=== PATIENT | female | born 1990 | race Hispanic/Latino ===

== ENCOUNTER 2016-10-09 01:25 | Inpatient (IN) | payer OTHER ==
[~2016-10-09] VITALS: Ht 154.9 cm; Wt 97.1 kg
[~2016-10-09 01:25] MED LIST: PREN1TAB47 PO
[2016-10-09] MEDS ORDERED: Lactated Ringer's 1,000 ML IV PRN (01:54)
[2016-10-09] MEDS ORDERED: Methylergonovine 0.2 mg/mL Inj IM PRN ×2 (01:55→14:05)
[2016-10-09] MEDS ORDERED: Oxytocin 10 Unit/mL Inj IM PRN ×2 (01:55→14:05)
[2016-10-09] MEDS ORDERED: Sodium Chloride LOK Flush 10 mL Syringe IVFLUSH PRN (01:55)
[2016-10-09] MEDS ORDERED: Oxytocin 30 Units/500 mL LR 30 UNITS in IV Premix 1 EACH IV PRN ×3 (01:55→14:05)
[2016-10-09] MEDS ORDERED: fentaNYL-PF 50 mCg/mL 2 mL Inj IVPUSH PRN (01:55)
[2016-10-09] MEDS ORDERED: Carboprost 250 mCg/mL Inj IM PRN ×2 (01:55→14:05)
[2016-10-09] MEDS ORDERED: Hemorrhage Kit, Post Partum XX ONE ×2 (01:55→14:05)
[2016-10-09 02:52] LABS: Mean Corpuscular Hemoglobin 27.7 pg (27.0-35.0); Mean Corpuscular Volume 84.8 fL (81-100)
[2016-10-09] MEDS ORDERED: Lactated Ringer's 1,000 ML IV SCH ×2 (06:39→14:05)
--- NOTE | 2016-10-09 08:43 | PCM.HPOB ---
Subjective Date of Service: Oct 09, 2016 Referring Provider: Admitting Physician: Jyoti Garcia MD Primary Care Physician: Lilliam Jiménez MD Attending Physician: Jyoti Garcia MD Chief Complaint SROM at 39+ 5 weeks History of Present History of Present Illness Patient is a very pleasant 26-year-old with an EDC of 10/11/2016. She has had regular care and has an LMP of 01/05/2016. Menarche was at the age of 13 and she has monthly cycles. She had a first trimester ultrasound done at 10 weeks +1 day confirming EDC of 10/11/2016. She has noticed more contractions over the last couple of days and fell asleep last evening but woke at 12 midnight with spontaneous rupture of membranes for clear fluid. Baby has been active and she was having occasional mild contractions every 8-10 minutes on arrival. She has rested overnight but has not yet kicked into a good labor pattern. Pitocin augmentation was started over the last hour or so but contractions are not picking up well. She rates them as mild to moderate. heart rate is in the 130 to 140s with good fbva-hz-yzyk variability and good accelerations. Vaginal exam showed vertex at -3 station, 50% effaced, cervix was mid to posterior position and an IUPC was placed with clear fluid returns. She is currently at Pitocin 2 milliunits per minute and this will be titrated to achieve a good contraction pattern. An is anticipated an estimated weight is 6-7 pounds. Mother's blood pressures have been normal throughout the and her GTT was 138. Weight gain in the has been 12 pounds. Mother is breathing well through contractions at this time and is hoping for natural delivery. She will consider an epidural if needed. I did speak with OB federal mediation commissioner about Pitocin augmentation and anticipated course of labor and delivery. OB History: (2), Para (1), Term (1), (0), Living (1) Past Medical History Obstetrical History: Her first baby was born October 2001 at 41 weeks gestation with 12 hours of labor. She had normal vaginal delivery of a baby boy weighing 6 lbs. 7 oz. His name is Rowan, and he is healthy but does have sensorineural hearing loss on one side with no obvious etiology. Gynecologic History: Patient has not had any history of abnormal Pap smears or STDs. 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 It had been quite bothersome during her last and with breast-feeding. 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 Surgical History: She had accessory breast tissue excised under local anesthetic from the right axillary area during this . Social History: She is and lives with the father of her baby Chung Gonzalez. Hx Tobacco Use: No Hx Alcohol Use: No Hx Substance Use: No Past Family History Living Arrangement: with Family Genetic Screening/Counseling Genetic Screening/Counseling: Negative Baby father-had child w defect: No Review of Systems Constitutional: Y: Dizziness, Fever Eyes: Denies: Blurred Vision, Redness, Vision Changes ENT: Denies: Dental Problems, Nasal Congestion, Nose Discharge, Ulcers/Sores in Mouth Cardiovascular: Denies: Chest Pain, Edema Respiratory: Denies: Cough Gastrointestinal: Denies: Abdominal Pain, Constipation, Diarrhea, Heartburn, Nausea, Vomiting Genitourinary: Denies: Dysuria, Hematuria Musculoskeletal: Denies: Redness, Swelling Skin/Breasts: Denies: Bruising, Discharge Skin: Denies: Jaundice Neurological: Denies: Change in Speech Psychologic: Denies: Anxious, Depression, Insomnia Endocrine: Denies: Change in Appitite Hematologic: Denies: Adenopathy Medications Home medications Patient has been on vitamins during the and is taking no other medications. Allergy Coded Allergies: No Known Allergies (Unverified Allergy, Unknown, 10/09/16) Exam Vital Signs Blood pressure was 113/70, heart rate 76, respiratory rate 16, temperature 36.6 Exam heart rate baseline is a 130s to 140s with good vbtb-wf-dgcy variability. This is a category 1 tracing. Constitutional: Well-developed, Well-nourished, Normal habitus HEENT: PERRLA, EOMI, Mucous Membr Moist/[place] Lungs: Clear to Auscultation, Normal Air Movement Heart: Regular Rate/Rhythm, Normal S1, Normal S2, No Murmurs/Rubs/Gallops Abdomen: Gravid, Normal bowel sounds, Soft Lymphatic: Normal: Neck Palpation of Nodes Extremities: Pulses Palpable x4, Warm, No Edema Neurological/Psychiatric: Alert, Oriented X3, No Acute Distress Neuro: Grossly Neurologically Intact Labs/Diagnostics Labs Patient is O+ with no abnormal antibodies. Pap smear was negative and varicella is immune. She is not immune to rubella. RPR is nonreactive. Urine culture was negative. Hep B surface antigen was negative. HIV was nonreactive. TSH was normal at 1.340 and hepatitis C was negative. A1c was 5.2 %. GC /chlamydia was negative. Her one hour GTT was 138. Group B strep was negative. Maternal Blood Type: O Hx Rho(D) Immune Globulin: No Antibody Screen: negative Group B Strep Results: Negative Previous Infant with GBS: No Rubella: Non-Immune Lab History: Positive for: Hx Chicken Pox, Negative for: Hx Gonorrhea, Hx HIV, Hx Herpes, Hx Syphilis OB Intrapartum Assessment/Plan Assessment Patient is a very pleasant 26-year-old who had SROM at midnight and is at 39 weeks +5 days with EDC of 10/11/2016. Pitocin augmentation has been started and IUPC placed to better monitor contractions. heart rate is reactive with a category 1 tracing. Vaginal delivery is anticipated, and estimated weight 6-7 pound range. Problems: (1) 39 weeks gestation of Status: Acute ICD Code: Z3A.39 (2) SROM (spontaneous rupture of membranes) Status: Acute ICD Code: [id number] Pain Evaluation: Adequate Pain Control Jyoti Garcia MD Oct 09, 2016 08:43
[2016-10-09] MEDS ORDERED: Ampicillin Inj 2,000 MG in 0.9% Sodium Chloride 100 ML IV ONE (11:40)
[2016-10-09] MEDS ORDERED: Witch Hazel-Glycerin Pads TOPICAL PRN (14:05)
[2016-10-09] MEDS ORDERED: LANOlin HPA 7 Gm Ointment TOPICAL PRN (14:05)
[2016-10-09] MEDS ORDERED: Benzocaine (Dermoplast) 20% 60 Gm Spray TOPICAL PRN (14:05)
[2016-10-09] MEDS ORDERED: Measles-Mumps-Rubella Vaccine 0.5 mL Inj SUBQ ONE (14:05)
[2016-10-09] MEDS ORDERED: HYDROcodone-APAP 5-325 mg Tablet PO PRN (14:05)
--- NOTE | 2016-10-09 14:17 | PCM.OBVAG ---
Vaginal Delivery Date of Service Oct 09, 2016 Pre Operative Diagnosis Pre Operative Diagnosis 1. at 39+5 weeks with spontaneous rupture of membranes 2. Pitocin augmentation of labor 3. of LBF infant Post Operative Diagnosis Post Operative Diagnosis 1. at 39+5 weeks with spontaneous rupture of membranes 2. Pitocin augmentation of labor 3. of LBF Procedure Obstetical Procedure: Normal Spontaneous Vaginal Delivery, Repair of Perineal Tear (1st degree) Full Time/Ironmolder Provider and Ironmolder: Dr. Jyoti Garcia Indication for Procedure Induction: Pitocin augmentation, SROM, Progressed normally through labor Findings Obstetrical Findings: (Female), Cord (3 Vessel), Weight (6lbs 11 ozs), Presentation (Vertex), 1 minute (9), 5 minutes (9), Placenta ( Intact/Normal), Perineal Laceration (1st degree) Analgesia/Medications Obstetrical Anesthesia: Local Procedure Details Procedure Details Patient is a very pleasant 26-year-old who has EDC of 10/11/2016 and presented to the center in the early hours after SROM at midnight. She was richard sporadically at that time and Pitocin augmentation was started in the morning. 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 She went to a maximum of Pitocin 10 mU/m and this kicked her nicely into labor. Fluid remained clear and heart rate was reactive, and in the 130s to 140s with good beat-to- beat variability. There was no maternal fever or tachycardia during labor. Ampicillin 2 g IV was given at 12 hours after rupture of membranes as she was still only 3-4 cm dilated at that point. Her first stage of labor was approximately 5 hours, second stage was 3 minutes, and third stage was 8 minutes. She went onto spontaneous vaginal delivery of a live born female infant who had weight of 6 lbs. 11 oz. Apgars of 9 at 1 minute and 9 at 5 minutes. Baby was placed onto the maternal abdomen and delayed cord clamping was done. Placenta delivered intact with a three-vessel cord and estimated blood loss at time of delivery was less than 250 mls. Mother sustained a small first-degree tear to the upper left labia which was sutured with 4-0 Vicryl to achieve good cosmesis and hemostasis. Mom has already attempted to breast-feed and routine care is anticipated. Baby care is to pediatrics. Specimen Placenta was for routine disposal and appeared intact Blood Loss & Administration Estimated Blood Loss: 250 Post Procedure Plan Post delivery Condition: Mom stable Jyoti Garcia MD Oct 09, 2016 14:17
[2016-10-09] MEDS ORDERED: AMPICILLIN IV SCH (16:00)
[2016-10-09] MEDS ORDERED: SODIUM CHLORIDE 0.9% IV SCH (16:00)
[2016-10-10 06:45] LABS: Mean Corpuscular Hemoglobin 27.5 pg (27.0-35.0); Mean Corpuscular Volume 85.8 fL (81-100)
--- NOTE | 2016-10-10 10:56 | PCM.DC.OB ---
Obstetrical Discharge Summary Date of Service Oct 10, 2016 Date of hospital admission Oct 09, 2016 at 01:52 Date of Discharge: Oct 10, 2016 Providers Admitting Physician: Jyoti Garcia MD Primary Care Physician: Lilliam Jiménez MD Attending Physician: Jyoti Garcia MD Diagnosis at Time of Discharge 1. at 39 weeks +5 days with spontaneous rupture of membranes 2. Pitocin augmentation of labor 3. Spontaneous vaginal delivery of a live born female infant Problems: (1) 39 weeks gestation of Status: Resolved ICD Code: Z3A.39 (2) SROM (spontaneous rupture of membranes) Status: Acute (3) (normal spontaneous vaginal delivery) Status: Acute ICD Code: O80 Brief History and Physical: Patient is a very pleasant 26-year-old with an EDC of 10/11/2016. She has had regular care and has an LMP of 01/05/2016. Menarche was at the age of 13 and she has monthly cycles. She had a first trimester ultrasound done at 10 weeks +1 day confirming EDC of 10/11/2016. She has noticed more contractions over the last couple of days and fell asleep last evening but woke at 12 midnight with spontaneous rupture of membranes for clear fluid. Baby has been active and she was having occasional mild contractions every 8-10 minutes on arrival. She has rested overnight but has not yet kicked into a good labor pattern. Pitocin augmentation was started over the last hour or so but contractions are not picking up well. She rates them as mild to moderate. heart rate is in the 130 to 140s with good djxr-ge-yyez variability and good accelerations. Vaginal exam showed vertex at -3 station, 50% effaced, cervix was mid to posterior position and an IUPC was placed with clear fluid returns. She is currently at Pitocin 2 milliunits per minute and this will be titrated to achieve a good contraction pattern. An is anticipated an estimated weight is 6-7 pounds. Mother's blood pressures have been normal throughout the and her GTT was 138. Weight gain in the has been 12 pounds. Mother is breathing well through contractions at this time and is hoping for natural delivery. She will consider an epidural if needed. I did speak with OB construction safety consultant about Pitocin augmentation and anticipated course of labor and delivery. Hospital Course: Patient is a very pleasant 26-year-old who was had regular care and was admitted to the center in the early hours of 10/09/2016 with spontaneous rupture of membranes for clear fluid. Contractions were very sporadic overnight and Pitocin augmentation was started in the morning. An IUPC was placed as we had difficulty monitoring her contractions and Pitocin was then increase to a maximum of 10 mU/m per protocol. She went nicely into active labor with this. heart rate baseline was in the 130s to 140s with good icfv-fb-nffa variability and good accelerations. Her first stage of labor was approximately 5 hours, second stage 3 minutes, third stage 8 minutes. She went onto spontaneous vaginal delivery of a live born female infant weighing 3046 g and Apgars were 9 at 1 minute and 9 at 5 minutes. Baby was placed onto the maternal abdomen and delayed cord clamping was done. She was vigorous and crying right away and fluid remained clear throughout. Placenta delivered intact with a three-vessel cord and estimated blood loss at time of delivery was less than 250 mls. Mother did sustain a small first-degree tear to the left labia that was repaired with 4-0 chromic to achieve good cosmesis and hemostasis. In the mom has been doing well and she is breast-feeding with her baby. Baby nursed multiple times overnight and mom is quite tired this morning. She does have good family support. She has been up and voiding but has not yet had a bowel movement. Bleeding has been normal. She has not had any dizziness and has been ambulating with out any problems. Vital signs have been stable and she is bonding well with her baby. Pain control has been adequate with just ibuprofen. Blood pressures range from 96/54-102/65, heart rate 60-73, temperature 36.6-36.8. Her breasts are soft and nipples are intact. Colostrum is expressible. Chest is clear throughout with normal respiratory movements and heart sounds are normal sinus rhythm with no murmurs. Abdomen is soft and fundus is firm at the umbilicus. Her perineum shows no swelling and sutures are clean and intact. She has moderate rubra lochia. No ankle edema is noted. Spirits are good. Vit/Fe Fumarate/Fa-Expunged Drug, Do (-Expunged Drug, Do Not Renew!) 1 Tab Tablet 1 TAB PO AM (Reported) Discharge Medications: 1. vitamins 1 tablet by mouth daily while breast-feeding 2. Ferrous sulfate 325 mg by mouth daily for 3 months 3. Ibuprofen 800 mg by mouth 3 times a day when necessary Disposition Patient is ready for discharge home today. Discharge Diet: No restrictions Discharge Activity-General: No restrictions, Pelvic Rest for 6 weeks, Try not to overdue, Be up and about, Balance rest and activity, Activity as pain allows , Activity as energy allows Patient instructions Please breast-feed every 2-3 hours for 10-15 minutes on each side, and make sure that you have a good latch for the baby. Your milk should be coming in in the next 1-2 days and then baby will be more satisfied. The iron supplements can cause constipation and you may use [id number] stool softeners as needed for this. Please call the office with any questions or concerns. Jyoti Garcia MD Oct 10, 2016 10:56
--- NOTE | 2016-10-10 11:03 | PCM.DIOB ---
Obstetrical Disch Instruction Date of Service: Oct 10, 2016 Dates of Hospitalization Date of Hospital Admission Oct 09, 2016 at 01:52 Providers Admitting Physician: Jyoti Garcia MD Primary Care Physician: Lilliam Jiménez MD Attending Physician: Jyoti Garcia MD Discharge Diagnosis Discharge Diagnosis 1. at 39 weeks +5 days with spontaneous rupture of membranes 2. Pitocin augmentation of labor 3. Spontaneous vaginal delivery of a live born female Post Operative diagnosis 1. at 39+5 weeks with spontaneous rupture of membranes 2. Pitocin augmentation of labor 3. Spontaneous vaginal delivery of a live born female infant Problems: (1) 39 weeks gestation of Status: Resolved ICD Code: Z3A.39 (2) SROM (spontaneous rupture of membranes) Status: Resolved (3) (normal spontaneous vaginal delivery) Status: Acute ICD Code: O80 Diet Discharge Diet: No restrictions Activity Discharge Activity-General: No restrictions, Pelvic Rest for 6 weeks, Try not to overdue, Be up and about, Balance rest and activity, Activity as pain allows , Activity as energy allows Dressing and Incisional Care Hygiene: May shower, Perineal care, Sitz bath, Dermoplast spray, Witch Donna pads, Ice Additional Instructions Discharge Instructions Please breast-feed every 2-3 hours for 10-15 minutes on each side, and make sure that you have a good latch for the baby. Your milk should be coming in in the next 1-2 days and then baby will be more satisfied. The iron supplements can cause constipation and you may use [id number] stool softeners as needed for this. Please call the office with any questions or concerns. Follow Up Plan Follow-up Provider (F9): Jyoti Garcia MD Follow-up appointment: Weeks (6) Call your provider for: Fever or Chills, Shortness of breath, Heavy vaginal bleeding, Epigastric pain, Excessive constipation, Vaginal discomfort, Red painful breasts Jyoti Garcia MD Oct 10, 2016 11:03
[2016-10-10] MEDS ORDERED: IBUP800T28 PO (11:04)
[2016-10-10] MEDS ORDERED: FERR-83 PO (11:04)
[2016-10-10 13:50] VITALS: BP 102/65; PULSE 73; RESP 18
== END 2016-10-10 14:10 | disposition home or self-care (01) | DRG 775 ==
LOC: FBCO 01:25 → FBC 01:52
PROVIDERS: ADMIT Family Medicine; ATTEND Family Medicine
PROC: 10E0XZZ Delivery of Products of Conception, External Approach (ICD-10-PCS; principal; 2016-10-09)
PROC: 10H073Z Insertion of Monitoring Electrode into Products of Conception, Via Natural or Artificial Opening (ICD-10-PCS; 2016-10-09)
PROC: 0HQ9XZZ Repair Perineum Skin, External Approach (ICD-10-PCS; 2016-10-09)
DX: O70.0 First degree perineal laceration during delivery (principal); Z37.0 Single live birth; Z3A.39 39 weeks gestation of pregnancy